=== PATIENT | female | born 1975 | race African-American/Black ===

== ENCOUNTER 2020-04-20 21:45 | Emergency (ER) | payer MEDICAID, OTHER ==
[~2020-04-20] VITALS: Ht 170.2 cm; Wt 81.6 kg
[~2020-04-20 21:45] MED LIST: COLACE100 MG/10 ORAL; DOXYCYCLINE MO100 MG ORAL; FERROUS SULFAT325 MG ORAL; IBUPROFEN600 M1 ORAL; IBUPROFEN600 MG ORAL; KEFLEX500 MG PO; LIDODERM700 M1 TOPIC; NKM; NORCO 5-325 TA1 EACH PO; PROMETHAZINE-D118 ML ORAL; ROBAXIN-500MG ORAL; SEPTRA DS TABL1 EACH PO; ZOFRAN4 M3 ORAL
[2020-04-20 22:16] VITALS: BP 120/81
--- NOTE | 2020-04-20 22:33 | Emergency Room Report ---
History of Present Illness General Chief Complaint: Dizziness Source: Patient Present Illness HPI Disclaimer: Please note that this report is being documented using [email or web address] technology. This can lead to erroneous entry secondary to incorrect interpretation by the dictating instrument. HPI: 45-year-old female presents for evaluation of near syncope. Patient was rising from a seated position her home walking around when she suddenly felt lightheaded. Denied vertigo. States she saw her vision narrowing, felt tingling in her fingertips, cramping in her hands. Denied chest pain shortness of breath. Momence unsteady on her feet and laid on the bed. Symptoms resolved. She is now returned to baseline. Patient started hydralazine 2 days ago for hypertension. States she recently saw her PMD for full work-up which returned unremarkable aside from low vitamin D levels and hypertension. Has been eating and drinking at baseline. Denies fever, chills, recent palpitations, chest pain, shortness of breath, cough, vomiting, diarrhea or other changes in her health. Denies drug or alcohol abuse PMH: Hypertension PSH: section, appendectomy Allergies: Reviewed Social Hx: Denied drug or alcohol abuse Allergies: Coded Allergies: No Known Allergies (Unverified , 05/11/14) COVID-19 Screening Contact w/high risk pt: No Recent Travel to affected area: No Experienced COVID-19 symptoms?: No COVID-19 Testing performed [employer]: Yes COVID-19 Screening: Negative COVID-19 COVID-19 Testing Source: [facility] Patient History Last Menstrual Period: on period Now: No Nursing Documentation-PMH Hx Hypertension: Yes Review of Systems All Other Systems: negative except mentioned in HPI Physical Exam Vital Signs Date Time Temp Pulse Resp B/P (MAP) Pulse Ox O2 Delivery O2 Flow Rate FiO2 04/20/20 21:53 98.8 99 20 120/81 (94) 98 Room Air General: Awake and alert, no acute distress HEENT: NC/AT. EOMI. Cardiovascular: RRR. S1 and S2 normal. No murmur appreciated Resp: Normal work of breathing. No cough, wheezing or crackles appreciated Abdomen: Abdomen is soft, nondistended. Nontender Skin: Intact. No abrasions, laceration or rash over the exposed skin MSK: Normal tone and bulk. Moving all extremities. No obvious deformity. Neuro: Awake and alert. Mentating appropriately. Medical Decision Making Diagnostic Impression: Primary Impression: Orthostatic hypotension Additional Impressions: Near syncope Nonsustained ventricular tachycardia ER Course 45-year-old who presents for evaluation of near syncopal event. Differential includes not limited to dehydration, orthostatic hypotension, medication side effect, ACS, arrhythmia, electrolyte abnormality among others. Patient has positive orthostatics with heart rate rising from 85-1 18 from laying to standin g. Receiving IV fluids. EKG is nonischemic. Intervals are within normal limits. No other abnormalities detected. Patient's labs have returned within normal limits including negative troponin. Urinalysis shows white cells but no bacteria. The patient denies urinary symptoms at this time. She is doing well after receiving IV fluids. The patient is intermittently tachycardic but states she is usually tachycardic and has been evaluated for this in the past. Started after her first . Denies pain or discomfort at this time. Would like to return home and follow-up on an outpatient basis. Advised her to stay hydrated drink plenty of fluids. Also advised to follow-up with her PMD regarding her antihypertensive medications. She understands and agrees with the treatment plan. Laboratory Tests Test 04/20/20 22:15 04/20/20 23:30 White Blood Count 6.0 K/UL (4.8-10.8) Red Blood Count 4.48 M/UL (4.20-5.40) Hemoglobin 13.8 G/DL (12.0-16.0) Hematocrit 41.5 % (37.0-47.0) Mean Corpuscular Volume 92 FL (80-99) Mean Corpuscular Hemoglobin 30.9 PG (27.0-31.0) Mean Corpuscular Hemoglobin Concent 33.4 G/DL (32.0-36.0) Red Cell Distribution Width 12.1 % (11.6-14.8) Platelet Count 310 K/UL (150-450) Mean Platelet Volume 5.6 FL (6.5-10.1) L Neutrophils (%) (Auto) 51.3 % (45.0-75.0) Lymphocytes (%) (Auto) 34.4 % (20.0-45.0) Monocytes (%) (Auto) 9.0 % (1.0-10.0) Eosinophils (%) (Auto) 2.7 % (0.0-3.0) Basophils (%) (Auto) 2.5 % (0.0-2.0) H Sodium Level 138 MMOL/L (136-145) Potassium Level 3.1 MMOL/L (3.5-5.1) L Chloride Level 101 MMOL/L (98-107) Carbon Dioxide Level 28 MMOL/L (21-32) Anion Gap 10 mmol/L (5-15) Blood Urea Nitrogen 10 mg/dL (7-18) Creatinine 1.2 MG/DL (0.55-1.30) Estimated Glomerular Filtration Rate 58.9 mL/min (>60) Glucose Level 122 MG/DL (74-106) H Calcium Level 8.8 MG/DL (8.5-10.1) Magnesium Level 2.1 MG/DL (1.8-2.4) Total Bilirubin 0.2 MG/DL (0.2-1.0) Aspartate Amino Transferase (AST) 17 U/L (15-37) Alanine Aminotransferase (ALT) 23 U/L (12-78) Alkaline Phosphatase 84 U/L (46-116) Troponin I 0.000 ng/mL (0.000-0.056) Total Protein 7.5 G/DL (6.4-8.2) Albumin 3.9 G/DL (3.4-5.0) Globulin 3.6 g/dL Albumin/Globulin Ratio 1.1 (1.0-2.7) Thyroid Stimulating Hormone (TSH) 1.366 uiU/mL (0.358-3.740) Urine Color Pale yellow Urine Appearance Clear Urine pH 6 (4.5-8.0) Urine Specific [place] 1.015 (1.005-1.035) Urine Protein 2+ (NEGATIVE) H Urine Glucose (UA) Negative (NEGATIVE) Urine Ketones Negative (NEGATIVE) Urine Blood 2+ (NEGATIVE) H Urine Nitrite Negative (NEGATIVE) Urine Bilirubin Negative (NEGATIVE) Urine Urobilinogen Normal MG/DL (0.0-1.0) Urine Leukocyte Esterase 1+ (NEGATIVE) H Urine RBC 10-15 /HPF (0 - 2) H Urine WBC 10-15 /HPF (0 - 2) H Urine Squamous Epithelial Cells Few /LPF (NONE/OCC) Urine Bacteria Few /HPF (NONE) Urine Opiates Screen Negative (NEGATIVE) Urine Barbiturates Screen Negative (NEGATIVE) Phencyclidine (PCP) Screen Negative (NEGATIVE) Urine Amphetamines Screen Negative (NEGATIVE) Urine Benzodiazepines Screen Negative (NEGATIVE) Urine Cocaine Screen Negative (NEGATIVE) Urine Marijuana (THC) Screen Positive (NEGATIVE) H EKG Diagnostic Results Troponin ordered: Yes When was troponin ordered?: Apr 20, 2020 EKG Time: 22:09 Rate: normal Rhythm: NSR ST Segments: no acute changes Other Impression Sinus rhythm, normal axis, normal intervals, QTC 45 ms, no ST segment changes Rhythm Strip Diag. Results Rhythm Strip Time: 22:09 EP Interpretation: yes Rate: 95 Rhythm: NSR, no PVC's, no ectopy Chest X-Ray Diagnostic Results Chest X-Ray Diagnostic Results : Chest X-Ray Ordered: Yes # of Views/Limited/Complete: 1 View Indication: Other - Syncope Last Vital Signs Date Time Temp Pulse Resp B/P (MAP) Pulse Ox O2 Delivery O2 Flow Rate FiO2 04/20/20 22:16 99 20 Room Air 04/20/20 22:16 98.8 120/81 98 Disposition: HOME, SELF-CARE Condition: Stable Referrals: [facility],REFERR[facility] (PCP) Chemo Galaviz MD Apr 20, 2020 22:33
[2020-04-20 22:36] VITALS: BP_SYST 127; BP_SYST 134; BP_SYST 144; BP_DIAS 73; BP_DIAS 80; BP_DIAS 83
[2020-04-20 22:56] LABS: BASOPHILS % (AUTO) 2.5 % (0.0-2.0); EOSINOPHILS % (AUTO) 2.7 % (0.0-3.0); HEMATOCRIT 41.5 % (37.0-47.0); HEMOGLOBIN 13.8 G/DL (12.0-16.0); LYMPHOCYTES % (AUTO) 34.4 % (20.0-45.0); MEAN CORPUSCULAR VOLUME 92 FL (80-99); NEUTROPHILS % (AUTO) 51.3 % (45.0-75.0); PLATELET COUNT 310 K/UL (150-450); RED BLOOD COUNT 4.48 M/UL (4.20-5.40); RED CELL DISTRIBUTION WIDTH 12.1 % (11.6-14.8)
[2020-04-20 23:07] LABS: CALCIUM 8.8 MG/DL (8.5-10.1); CREATININE 1.2 MG/DL (0.55-1.30); POTASSIUM 3.1 MMOL/L (3.5-5.1)
[2020-04-20 23:18] LABS: ALBUMIN 3.9 G/DL (3.4-5.0); ALBUMIN/GLOBULIN RATIO 1.1 (1.0-2.7); BILIRUBIN,TOTAL 0.2 MG/DL (0.2-1.0)
[2020-04-20 23:40] LABS: APPEARANCE,URINE CLEAR; BILIRUBIN, URINE NEGATIVE (NEGATIVE); COLOR,URINE PALE YELLOW; GLUCOSE, URINE (UA) NEGATIVE (NEGATIVE); KETONES,URINE NEGATIVE (NEGATIVE); LEUKOCYTE ESTERASE ,URINE 1+ (NEGATIVE); NITRITE,URINE NEGATIVE (NEGATIVE); PH,URINE 6 (4.5-8.0); PROTEIN,URINE 2+ (NEGATIVE); UROBILINOGEN,URINE NORMAL MG/DL (0.0-1.0)
[2020-04-20 23:43] VITALS: BP 126/78
[2020-04-21] MEDS ORDERED: Acetaminophen 500mg (ES) tab ORAL ONE (00:15)
[2020-04-21 00:59] VITALS: BP 134/72
[2020-04-21 01:00] VITALS: BP 134/72
--- NOTE | 2020-04-21 16:07 | Diagnostic Imaging Report ---
Indication: Chest pain Technique: One view of the chest Comparison: none Findings: Lungs and pleural spaces are clear. Heart size is normal. Impression: No acute process
== END 2020-04-21 01:00 | disposition home or self-care (01) ==
LOC: EMR 22:13 → MERGE 22:13 → CANBEDREQ 04-21 00:47 → EMR 04-21 01:00
DX: I95.1 Orthostatic hypotension (principal); R55 Syncope and collapse; I47.2 Ventricular tachycardia; I10 Essential (primary) hypertension; Z90.89 Acquired absence of other organs; R07.9 Chest pain, unspecified
CPT/HCPCS: 36415; 71045; 80053; 80307; 81003; 83735; 84443; 84484; 85025; 87086; 93005; 96360; J7030; Z7502; 99284